=== PATIENT | female | born 1975 | race Caucasian/White ===

== ENCOUNTER 2022-01-07 11:35 | Emergency (ER) | payer MEDICAID, MEDICARE | END 2022-01-07 13:05 | disposition home or self-care (01) | LOC: LB.ED 11:35 | DX: J30.2 Other seasonal allergic rhinitis (principal); L02.91 Cutaneous abscess, unspecified; R05.9 Cough, unspecified; F17.210 Nicotine dependence, cigarettes, uncomplicated; Z88.5 Allergy status to narcotic agent; Z88.0 Allergy status to penicillin | CPT/HCPCS: 99282; 99283 ==